=== PATIENT | female | born 1950 | race Caucasian/White ===

== ENCOUNTER 2022-11-17 05:43 | Observation (INO) ==
[2022-11-17] MEDS ORDERED: Famotidine IV 10 MG/ML 2 ml VIAL (20 mg) IV ONE (06:00)
[2022-11-17] MEDS ORDERED: Buffered Lidocaine 1% SYRIN 1 ml INTRADERM ONE (06:00)
[2022-11-17] MEDS ORDERED: Ondansetron 4 mg VIAL 2 MG/ML 2 ml VIAL IV ONE (06:00)
[2022-11-17] MEDS ORDERED: Lactated Ringers 1000 ml BAG 1,000 ML IV SCH (06:00)
[2022-11-17] MEDS ORDERED: ceFAZolin 2 GM in NS PREMIX 2 GM/100 ML BAG IVPB ONE (06:09)
[2022-11-17] MEDS ORDERED: Ondansetron 4 mg VIAL 2 MG/ML 2 ml VIAL ONE ×2 (06:11→06:40)
[2022-11-17] MEDS ORDERED: Famotidine IV 10 MG/ML 2 ml VIAL (20 mg) ONE (06:11)
[2022-11-17] MEDS ORDERED: Dexamethasone IV 4 MG/ML VIAL 1 ml VIAL ONE (06:40)
[2022-11-17] MEDS ORDERED: Midazolam 2 mg/2 ml VIAL 1 mg/ml 2 ml VIAL (2 mg) ONE (06:40)
[2022-11-17] MEDS ORDERED: Lidocaine 2% PF 5 ML VIAL ONE (06:40)
[2022-11-17] MEDS ORDERED: Propofol 10 MG/ML 20 ML BTL ONE ×2 (06:42→08:47)
[2022-11-17] MEDS ORDERED: fentaNYL 100 mcg/2 ml 50 MCG/ML VIAL ONE ×3 (07:14→12:28)
[2022-11-17] MEDS ORDERED: ROPIVACAINE 5 MG/ML 30 ML BTL (0.5%) ONE (07:18)
[2022-11-17] MEDS ORDERED: HYDROmorphone 0.5 MG/0.5 ML SYRINGE ONE (07:51)
[2022-11-17] MEDS ORDERED: Naloxone 0.4 mg VIAL 0.4 mg/ml 1 ml VIAL IV PRN (08:15)
[2022-11-17] MEDS ORDERED: fentaNYL 250 mcg/5 ml 50 MCG/ML 5 ml VIAL (250 MCG) ONE (08:22)
[2022-11-17] MEDS ORDERED: Acetaminophen IV 1 GM/100ML 0 MG/0 ML BAG IV ONE (08:48)
[2022-11-17] MEDS ORDERED: Ondansetron ODT 4 mg TAB 4 MG TAB PO PRN (09:00)
[2022-11-17] MEDS ORDERED: Ondansetron 4 mg VIAL 2 MG/ML 2 ml VIAL IV PRN (09:00)
[2022-11-17] MEDS ORDERED: Magnesium Hydroxide LIQ 30 ML UDC PO PRN (09:00)
[2022-11-17] MEDS ORDERED: Morphine 2 MG/ML SYRINGE IV PRN (09:00)
[2022-11-17] MEDS ORDERED: Lactulose 30 ml UDC PO PRN (09:00)
[2022-11-17] MEDS ORDERED: HYDROmorphone 1 MG/1 ML SYRINGE ONE (10:21)
[2022-11-17] MEDS: HYDROmorphone 1 MG/1 ML SYRINGE IV PRN ×2 (10:22→10:40)
[2022-11-17] MEDS: fentaNYL 100 mcg/2 ml 50 MCG/ML VIAL IV PRN ×3 (11:41→12:33)
[2022-11-17] MEDS: Lactated Ringers 1000 ml BAG 1,000 ML IV SCH (14:12)
[2022-11-17] MEDS: Magnesium Hydroxide LIQ 30 ML UDC PO SCH ×2 (15:21→21:11)
[2022-11-17] MEDS: Vitamin THERAPEUTIC TAB PO SCH (15:21)
[2022-11-17] MEDS: ceFAZolin 1 GM ADVAN 1 GM in NS 0.9% 50 ML 50 ML IVPB SCH (17:09)
[2022-11-17] MEDS ORDERED: Prochlorperazine 5 mg/ml 2 ml VIAL (10 mg) IV PRN (17:58)
[2022-11-18] MEDS: Lactated Ringers 1000 ml BAG 1,000 ML IV SCH (00:39)
[2022-11-18] MEDS: ceFAZolin 1 GM ADVAN 1 GM in NS 0.9% 50 ML 50 ML IVPB SCH ×2 (00:41→09:07)
[2022-11-18 06:53] LABS: Hematocrit 35 % (35-47); Hemoglobin 11.9 g/dL (12.0-16.0); Platelet Count 339 10^3/uL (150-450)
[2022-11-18 07:12] LABS: Calcium 9.1 mg/dL (8.6-10.3); Creatinine, Serum 0.61 mg/dL (0.51-0.95); Potassium 4.2 mmol/L (3.5-5.0); eGFR CKD-EPI 93.8 (>60)
[2022-11-18] MEDS: Magnesium Hydroxide LIQ 30 ML UDC PO SCH (09:07)
[2022-11-18] MEDS: Vitamin THERAPEUTIC TAB PO SCH (09:07)
[2022-11-18 11:23] VITALS: BP 122/70
== END 2022-11-18 13:45 | disposition home or self-care (01) ==
LOC: OR 05:43 → SSU 05:43
PROVIDERS: ADMIT Orthopaedic Surgery Adult Reconstructive Orthopaedic Surgery; ATTEND Orthopaedic Surgery Adult Reconstructive Orthopaedic Surgery